=== PATIENT | male | born 1960 | race Caucasian/White ===

== ENCOUNTER 2017-02-09 08:59 | Day surgery (SDC) | payer BC ==
[~2017-02-09 08:59] MED LIST: Buffered Lidocaine 0.9% SYRIN* 5 ML/SYR SYRINGE INTRADERM ONE; Buffered Lidocaine 0.9% SYRIN* 5 ML/SYR SYRINGE ONE; Cyclopentolate 1% OPTH.SOL* 2 ML BTL ONE; Famotidine IV* 10 MG/ML 2 ML (20 mg) IV ONE; Flurbiprofen 0.03% OPTH.SOL* 2.5 ML BTL ONE; Lidocaine 1% MPF* 2 ML VIAL ONE; Neomycin/Polymy/Dex OPHTH.OIN* 3.5 GM ONE; Phenylephrine 2.5% OPTH.SOL* 2 ML BTL ONE; Povidone Iodine 5% OPTH* 30 ML BTL ONE; Tetracaine 0.5% OPTH.SOL 4 ML* 1 DROP BTL ONE; Tropicamide 1% OPTH.SOL* BTL ONE; acetaZOLAMIDE TAB* 250 MG ONE
[2017-02-09] MEDS ORDERED: ceFAZolin 2 GM PREMIX(*) 2 GM/50 ML BAG IVPB ONE (09:51)
[2017-02-09] MEDS ORDERED: Famotidine IV* 10 MG/ML 2 ML (20 mg) ONE (09:52)
[2017-02-09] MEDS ORDERED: KETAMINE HCL* 50 MG/ML 10 ML VIAL ONE (10:16)
[2017-02-09] MEDS ORDERED: Midazolam* 1 MG/ML 5 ML VIAL (5 MG) ONE (10:16)
[2017-02-09] MEDS ORDERED: fentaNYL* 50 MCG/ML 2 ML VIAL (100 MCG VIAL) ONE (10:16)
[2017-02-09] MEDS ORDERED: Dexamethasone IV* 4 MG/ML 1 ML (4 MG) ONE (10:20)
[2017-02-09] MEDS ORDERED: Propofol* 10 MG/ML 20 ML BTL IV PUSH ONE (10:20)
[2017-02-09] MEDS ORDERED: Lidocaine 2% PF * 5 ML VIAL ONE (10:20)
[2017-02-09] MEDS ORDERED: Ketorolac INJ* 30 MG/ML 1 ML VIAL ONE (10:20)
[2017-02-09] MEDS ORDERED: Ondansetron INJ* 2 MG/ML VIAL ONE (10:20)
[2017-02-09] MEDS ORDERED: Bupivacaine 0.25% SDV* 30 ML ONE (11:05)
[2017-02-09] MEDS ORDERED: oxyCODONE/Acetamin 5/325 MG* TAB PO PRN (11:07)
[2017-02-09] MEDS ORDERED: HYDROmorphone* 1 MG/ML 1 ML SYR IV PRN (11:07)
[2017-02-09] MEDS ORDERED: DiMENhydriNATE IV* 50 MG/ML VIAL IV PUSH PRN (11:07)
[2017-02-09 13:21] VITALS: BP 154/87
--- NOTE | 2017-02-10 04:25 | OP ---
DATE OF OPERATION: 02/09/17 - [facility] DATE OF : 58 SURGEON: Trey Preston MD DRILL RIG OPERATOR: REJI Atkins. An administrative assistant office manager was needed for the entirety of the procedure to aide in positioning of the arm and retraction. ANESTHESIOLOGIST: Dr. Lennon. ANESTHESIA: General. PRE-OP DIAGNOSIS: Right carpal and cubital tunnel syndromes. POST-OP DIAGNOSES: Right carpal and cubital tunnel syndromes. PROCEDURE PERFORMED: 1. Right open carpal tunnel release. 2. Right in situ cubital tunnel release. INDICATIONS: Manpreet is a recovering alcoholic since over for a year. He does have peripheral neuropathy and on his electrodiagnostic studies, had sensory motor peripheral neuropathy; however, he also had evidence consistent with carpal tunnel syndrome and ulnar nerve compression at the elbow. On my exam, it really seemed like he was having peripheral nerve compression. He has been dealing with this for years, it has been progressive. He has tried wearing wrist brace, has had some help; however, he finds them difficult to wear. I talked to him about the risk of surgery in that he does have a sensorimotor peripheral neuropathy related to what is thought to be his former alcoholism and that there is a chance that he may not get complete recovery. He wants to proceed with surgery and see how much better he got. We talked about risks and benefits including the risk of nerve injury. He wants to proceed. ESTIMATED BLOOD LOSS: 5 mL. COMPLICATIONS: None. FINDINGS: As expected. DESCRIPTION OF PROCEDURE: Manpreet was seen in the preoperative holding area. The correct site and side of the procedure were identified. We came back to the operating room and the arm was prepped and draped in usual fashion. General anesthesia was induced, a formal time out was performed. I began by making 2 to 3-cm incision in the standard location for carpal tunnel release. Dissection was carried down through the subcutaneous tissue and the palmar fascia. The transverse carpal ligament was exposed. The release was began distally and carried out proximally staying just radial to the hook of the hamate. When I got proximally, I released the fascia and subcutaneous tissue and this was retracted volarly and ulnarly. A Araceli rectractor was placed and under direct visualization, the remainder of the transverse carpal ligament and distal antebrachial fascia was released with the tenotomy scissors just off the ulnar aspect of the palmaris longus tendon. I then came distally and released a few more fibers. At this point, there was absolutely no compression on the nerve. The wound was then irrigated and the skin was closed with 4-0 nylon suture. Attention was then turned to the elbow where an incision was made centered over Thomas's ligament and extended 3 or 4 cm proximally and distally in line with the ulnar nerve. Dissection was carried down to the subcutaneous tissue sharply , to the fascia proximally and then distally with the tenotomy scissors, taking care to try to identify the medial antebrachial cutaneous nerve. I did not encounter a branch in the operative field. At this point, I went ahead and took my tenotomy scissors and began the release just at the proximal aspect of Thomas's ligament. The release was carried out proximally to a level past 8 cm proximal to the medial epicondyle where the arcade of Hope was released. I then came back and released Thomas's ligament. This was very thick and had the appearance of chronic inflammation here. The superficial FCU fascia was then released distally. The 2 heads of the FCU muscle were then split and then the subfacial layer was released distally to a level of several centimeters distal to the medial epicondyle. There was a prominent leash of vessels running just at the distal aspect of medial epicondyle across the nerve that appeared to be somewhat compressive. These were dissected free and then cauterized and released. At this point, the nerve was examined. It was quite adherent to the floor of the cubital tunnel. I did a limited neurolysis and mobilized the nerve to release some of the dense adhesive tissue. Once the nerve was fully released and freed, I went ahead and flexed and extended the elbow at multiple times. It did not subluxate and so I decided to not transpose the nerve. The wound was then irrigated, the subcutaneous tissue was reapproximated with 3-0 Polysorb sutures, skin was closed with 4-0 nylon suture. Wounds were dressed with Xeroform, 4x4s, and ABD over the elbow, sterile Webril, and then Jose bandages. Tourniquet was deflated. I had exsanguinated the arm with the Esmarch and inflated the tourniquet to 250 mmHg prior to making the skin incision. After tourniquet deflation, the hand pinked up immediately. He was then woken up and taken to the recovery room in stable condition. [id number]/[facility] #: [id number] ANILA
== END 2017-02-09 13:33 | disposition home or self-care (01) ==
LOC: OREAST 08:59
PROVIDERS: ATTEND Orthopaedic Surgery Hand Surgery
DX: G56.01 Carpal tunnel syndrome, right upper limb (principal); G56.21 Lesion of ulnar nerve, right upper limb; F17.210 Nicotine dependence, cigarettes, uncomplicated; M19.90 Unspecified osteoarthritis, unspecified site
CPT/HCPCS: A9270-GY; J0690; J1100; J1885; J2250; J2405; J2704; J3010

== ENCOUNTER 2017-03-18 12:32 | Day surgery (SDC) | payer BC ==
[~2017-03-18 12:32] MED LIST changes: -Cyclopentolate 1% OPTH.SOL* 2 ML BTL ONE; +Dexamethasone IV* 4 MG/ML 1 ML (4 MG) ONE; +Famotidine IV* 10 MG/ML 2 ML (20 mg) ONE; -Flurbiprofen 0.03% OPTH.SOL* 2.5 ML BTL ONE; -Lidocaine 1% MPF* 2 ML VIAL ONE; +Lidocaine 2% PF * 5 ML VIAL ONE; +Midazolam* 1 MG/ML 5 ML VIAL (5 MG) ONE; -Neomycin/Polymy/Dex OPHTH.OIN* 3.5 GM ONE; +Ondansetron INJ* 2 MG/ML VIAL ONE; -Phenylephrine 2.5% OPTH.SOL* 2 ML BTL ONE; -Povidone Iodine 5% OPTH* 30 ML BTL ONE; +Propofol* 10 MG/ML 20 ML BTL IV PUSH ONE; -Tetracaine 0.5% OPTH.SOL 4 ML* 1 DROP BTL ONE; -Tropicamide 1% OPTH.SOL* BTL ONE; -acetaZOLAMIDE TAB* 250 MG ONE; +fentaNYL* 50 MCG/ML 2 ML VIAL (100 MCG VIAL) ONE
[2017-03-18] MEDS ORDERED: Methylene Blue 0.5 %* 50 MG/10 ML AMP IV ONE (12:43)
[2017-03-18] MEDS ORDERED: Lidocaine 2% W/EPI 1:100,000* 20 ML MDV ONE (12:43)
[2017-03-18] MEDS ORDERED: Glycopyrrolate IV* 0.2 MG/ML 1 ML VIAL ONE (13:03)
[2017-03-18] MEDS ORDERED: KETAMINE HCL* 50 MG/ML 10 ML VIAL ONE (13:03)
[2017-03-18] MEDS ORDERED: Levalbuterol HFA INHALER* 1 PUFF MDI ONE (13:04)
[2017-03-18] MEDS ORDERED: Midazolam* 1 MG/ML 2 ML VIAL (2 MG) ONE (13:08)
[2017-03-18] MEDS ORDERED: Ondansetron ODT TAB* 4 MG PO PRN (13:42)
[2017-03-18] MEDS ORDERED: oxyCODONE/Acetamin 5/325 MG* TAB PO PRN (13:42)
[2017-03-18 14:07] VITALS: BP 139/92
--- NOTE | 2017-03-19 04:21 | OP ---
DATE OF OPERATION: 03/18/17 - [facility] DATE OF : 58 SURGEON: Sam Templeton MD ANESTHESIOLOGIST: Ho Valentin MD ANESTHESIA: MAC PRE-OP DIAGNOSIS: Facial mass. POST-OP DIAGNOSIS: Facial mass. OPERATIVE PROCEDURE: Excision of sebaceous cyst, left face. INDICATIONS: This pleasant 56-year-old gentleman presenting with left facial mass just at the region of the glabella, appeared to be a large facial mass, most likely in keeping with a sebaceous cyst. DESCRIPTION OF PROCEDURE: The patient was taken to the operating room, local with a MAC anesthesia. The patient's face was then prepped and draped in the usual fashion. A curvilinear incision made, an approximately 2.5 x 2 cm mass was then carefully dissected out of the facial subdermal layer. Once the mass was removed, the wound was copiously irrigated, closed in single layer. The patient tolerated the procedure without any complications and sent to the recovery room in stable condition. Instrument and sponge count correct. Blood loss minimal. [id number]/[facility] #: [id number] MTDD
== END 2017-03-18 14:07 | disposition home or self-care (01) ==
LOC: OR 12:32
PROVIDERS: ATTEND Otolaryngology
DX: L72.3 Sebaceous cyst (principal); J44.9 Chronic obstructive pulmonary disease, unspecified; F17.210 Nicotine dependence, cigarettes, uncomplicated
CPT/HCPCS: A9270-GY; J1100; J2250; J2405; J2704; J3010